=== PATIENT | male | born 1955 | race Caucasian/White ===

== ENCOUNTER 2018-02-10 08:09 | Day surgery (SDC) | payer OTHER, SELFPAY ==
--- NOTE | 2018-02-01 10:10 | RAD_ITS ---
STUDY: X-RAY CHEST REASON FOR EXAM: Male, 62 years old. sob, abnormal stress test, chest pain, pre cath TECHNIQUE: Frontal and lateral views of the chest. COMPARISON: August 08, 2017 FINDINGS: Chronic appearing increased interstitial lung markings. There are multiple median sternotomy wires. The lung saravia are hyperexpanded. There is no demonstrated pleural abnormality. Normal heart size. Normal mediastinum and heidi. Normal visualized pulmonary arteries. There is atherosclerotic calcification of the aortic arch with tortuosity. There are diffuse degenerative changes of the visualized thoracic spine. There is degenerative osteoarthritis of the bilateral shoulders. There is no demonstrated abnormality of the visualized soft tissue structures of the upper abdomen. RAD/Chest PA and Lateral IMPRESSION: There are no acute findings. Electronically Signed: John Zaragoza MD at 16:55 EDT , Service support ,
[2018-02-01 10:34] LABS: Hematocrit 39.8 % (40-54); Hemoglobin 12.6 g/dl (13.0-16.5); Mean Corp Hgb Conc 31.7 g/gl (32-36); Mean Corpuscular Hgb 29.8 pg (27.0-32.0); Mean Corpuscular Volume 94.1 fL (80-94); Mean Platelet Vol. 9.9 fl (6.2-12.0); Platelet Count 220 K/mm3 (150-450); RBC Distribution Width CV 14.8 % (11.6-14.6); RBC Distribution Width SD 47.6 fl (35.1-43.9); Red Blood Count 4.23 M/mm3 (4.6-6.2); White Blood Count 4.9 K/mm3 (4.4-11.0)
[2018-02-01 10:40] LABS: Scan Indicated on CBC? Y/N NO
[2018-02-01 10:55] LABS: Anion Gap 6 (5-15); BUN 12 mg/dL (7-18); BUN/Creat Ratio 17.6 RATIO (10-20); Chloride 104 mmol/L (98-107); Creatinine, Serum 0.68 mg/dL (0.70-1.30); EST Glomerular Filtration Rate 126 mL/min (>60); Est Glom Filt Rate - Afr Amer 152 mL/min (>60); Glucose 86 mg/dL (74-106); Potassium 4.4 mmol/L (3.5-5.1); Sodium Level 141 mmol/L (136-145)
[2018-02-09 08:59] VITALS: BMI 20.3
--- NOTE | 2018-02-10 10:12 | CL.D_ITS ---
Patient Name: ZONIA QUEVEDO Study Date: 02/10/2018 Performing: Cresencio Cook MD Ht: 68.89 inches 175 cm : 1955 Wt: 138.89 lbs 63 kg Age: 62 Gender: male BSA: 1.77 PROCEDURE(S) PERFORMED [id number]/CABG [id number]-AO ROOT ANGIO WITH HEART CATH CLINICAL PROFILE AND INDICATIONS Indications: Stable Known CAD Heart Failure: None Stress/Imaging Stress Test w/SPECT MPI: Yes Result: IndeterminantStress Test with SPECT MPI: Inde terminant CAD Presentations: Stable angina. CONCLUSIONS Severe [place] vessel disease with patent bypass grafts from the saphenous vein graft to the right cor onary artery, left internal mammary artery to the left anterior descending artery, and sequential kim e right internal mammary artery from the diagonal to the circumflex artery. RECOMMENDATIONS Medical therapy DESCRIPTION OF PROCEDURE The patient arrived to the procedure lab. The risks and benefits of the procedure as well as a full d escription of our services here and current unavailability of surgical backup were fully explained to the patient and/or their significant other prior to the catheterization. The Timeout was completed, verifying the correct patient and procedure. The patient's procedural site was prepped and draped in the usual fashion. Local anesthetic was given subcutaneously to right groin region with Lidocaine 2%. Using a modified Seldinger technique, arterial access was obtained via the right femoral artery, a 5 Fr sheath was inserted. Left Coronary Artery selective angiography was performed in multiple views u sing a 5 Fr. JL4 catheter. Right Coronary Artery selective angiography was then performed in multiple views using a 5 Fr. 3DRC (Alejandro) catheter. Left internal mammary artery graft to the LAD selectiv e angiography was performed in multiple views using a 5 Fr. IM catheter. Saphenous Vein graft to the RCA selective angiography was performed in multiple views using a 5 Fr. AR MOD 1 catheter. LV to AO p ullback pressures were then recorded. Ascending (root) aorta selective angiography was then performed in single view. Ascending (root) aorta selective angiography was then performed in single view.The a rterial sheath was pulled and manual compression applied until hemostasis is achieved. CORONARY ANGIOGRAPHY DOMINANCE: Right Dominant LEFT HEART ASSESSMENT Left Ventricular Ejection Fraction: by Radionucleotide 59 % LEFT MAIN: 50 % Stenosis LEFT ANTERIOR DECENDING ARTERY: PROX LAD: 70 % Stenosis DIAGONAL 1: Proximal - 70 % Stenosis CIRCUMFLEX ARTERY: OM 1: Proximal - 80 % Stenosis RIGHT CORONARY ARTERY: MID RCA: is occluded GRAFTS: Saphenous Vein graft to the RPDA is patent MANNING graft to the Mid LAD is patent J CARLOS graft to the diagonal and circumflex coming off as a T graft from the MANNING is patent The free R NAY graft from the left internal mammary artery to the diagonal vessel and the circumflex artery comi ng off as a T graft is patent AORTIC ROOT: Aortogram demonstrated no additional grafts. Normal size is noted. COMPLICATIONS No Complications PROCEDURE MEDICATIONS Versed 1 mg IV Oxygen: 2 L/min via nasal cannula SUMMARY OF HEMODYNAMIC DATA Time AIR REST ECG 08:36:23 AO 126/65 (90) SA 09:06:12 LV 123/-8, 12 09:42:14 LV 123/-6, 16 09:42:37 LVp 126/-4, 14 09:42:44 AOp 121/58 (84) 09:42:49 Signed By Cresencio Cook MD On 02/10/2018 10:11:38 AM Signed By Cresencio Cook MD On 02/10/2018 10:11:17 AM Cresencio Cook MD
== END 2018-02-10 18:00 | disposition home or self-care (01) ==
LOC: CLSP 08:10
PROVIDERS: Family Provider Preventive Medicine Occupational Medicine; PCP Preventive Medicine Occupational Medicine; Visit Provider Internal Medicine Cardiovascular Disease
DX: I25.118 Atherosclerotic heart disease of native coronary artery with other forms of angina pectoris (principal); I25.2 Old myocardial infarction; I10 Essential (primary) hypertension; E78.00 Pure hypercholesterolemia, unspecified; R06.02 Shortness of breath; R07.9 Chest pain, unspecified; R94.39 Abnormal result of other cardiovascular function study; Z95.1 Presence of aortocoronary bypass graft; Z79.82 Long term (current) use of aspirin; Z79.899 Other long term (current) drug therapy
CPT/HCPCS: 36415; 71046; 80048; 85027; 93455; 93567; 99152; 99153; J7040; Q9967; C1769

== ENCOUNTER 2022-01-07 10:45 | Outpatient (CLI) | payer OTHER, SELFPAY ==
[2022-01-07 11:38] LABS: AST(SGOT) 36 U/L (15-37); Alanine Aminotransfer ALT/SGPT 41 U/L (16-61); Alkaline Phosphatase 77 U/L (45-117); Bilirubin, Direct 0.11 mg/dL (0.00-0.30); Cholesterol 133 mg/dL (200); Globulin 3.7 g/dL (2.2-4.2); High Density Lipoprotein 44 mg/dL; Protein, Total 7.7 g/dL (6.4-8.2); Triglycerides 78 mg/dL; Very Low Density Lipoprotein 16 mg/dL (5-40)
== END 2022-01-07 23:59 | disposition home or self-care (01) ==
PROVIDERS: PCP Preventive Medicine Occupational Medicine; Referring Provider Internal Medicine Cardiovascular Disease; Visit Provider Internal Medicine Cardiovascular Disease
DX: E78.00 Pure hypercholesterolemia, unspecified (principal)
CPT/HCPCS: 36415; 80061; 80076

== ENCOUNTER → 2022-10-15 | Outpatient (CLI) | payer OTHER, SELFPAY | END | disposition home or self-care (01) | LOC: PSN 12:42 | PROVIDERS: PCP Preventive Medicine Occupational Medicine; Visit Provider Nurse Practitioner Family | DX: I49.3 Ventricular premature depolarization (principal); I25.119 Atherosclerotic heart disease of native coronary artery with unspecified angina pectoris; R00.2 Palpitations | CPT/HCPCS: 93225; 93226 ==

== ENCOUNTER → 2022-11-01 | Outpatient (CLI) | payer OTHER, SELFPAY ==
--- NOTE | 2022-11-01 06:05 | ECHOD_ITS ---
Reason For Study: PVC, CAD, CABG Procedure This was a 2D Doppler, Color Flow transthoracic echocardiogram. Exam performed in department. Left Ventricle Normal LV size. Left ventricular systolic function is lower limits of normal. The left ventricular ejection fraction is 45 %. Mild segmental systolic dysfunction (see wall motion). Stage 2 diastolic dysfunction. Mid-Inferior: Hypokinetic. Infero-Basal: Hypokinetic. There are regional wall motion abnormalities as specified. The rest of the wall segments are normal. Right Ventricle Normal RV size. Normal systolic function. Atria Normal left atrium. Normal right atrium. Mitral Valve Normal mitral valve. Tricuspid Valve Normal tricuspid valve. Aortic Valve Trisinus/trileaflet aortic valve. Pulmonic Valve Normal pulmonic valve. Great Vessels Normal aortic root. The pulmonary artery is normal size. Normal inferior vena cava. Pericardium/Pleural No pericardial effusion. MMode/2D Measurements & Calculations LVIDd: 4.9 cm IVSd: 1.3 cm LA dimension: 3.6 cm LVIDs: 3.8 cm LVPWd: 1.1 cm RVDd: 3.9 cm FS: 22.6 % LAV(MOD-bp): 56.8 ml LVAd ap4: 33.5 cm2 SV(MOD-sp4): 65.3 ml LAV(MOD-bp) Indexed: 31.4 ml/m2 LVLd ap4: 8.2 cm LAV(MOD-sp2): 60.4 ml EDV(MOD-sp4): 113.5 ml LAV(MOD-sp4): 52.5 ml EDV(sp4-el): 116.5 ml LVAs ap4: 20.2 cm2 LVLs ap4: 7.3 cm ESV(MOD-sp4): 48.2 ml ESV(sp4-el): 47.8 ml EF(MOD-sp4): 57.6 % EF(sp4-el): 58.9 % SV(sp4-el): 68.7 ml LA A4 area: 18.9 cm2 RA A4 area: 17.1 cm2 Time Measurements MV dec time: 0.25 sec Doppler Measurements & Calculations MV E max noah: 83.3 cm/sec Lat Peak E' Noah: 14.6 cm/sec Med Peak E' Noah: 10.5 cm/sec MV A max noah: 62.9 cm/sec E/E' lat: 5.7 E/E' med: 7.9 MV E/A: 1.3 MV V2 max: 72.4 cm/sec Ao V2 max: 127.1 cm/sec MV max P.1 mmHg MV dec slope: 334.9 cm/sec2 Ao max P.5 mmHg MV V2 mean: 35.3 cm/sec Ao V2 mean: 85.7 cm/sec MV mean P.63 mmHg Ao mean P.4 mmHg MV V2 VTI: 33.0 cm Ao V2 VTI: 29.5 cm AV (velocity ratio): 0.74 LV V1 max: 102.3 cm/sec MR max noah: 473.4 cm/sec PA V2 max: 84.1 cm/sec LV V1 max P.2 mmHg MR max P.6 mmHg PA V2 mean: 60.2 cm/sec LV V1 mean P.0 mmHg LV V1 mean: 66.6 cm/sec LV V1 VTI: 21.8 cm ECHO/Echo Complete Interpretation Summary Normal LV size. Left ventricular systolic function is lower limits of normal. The left ventricular ejection fraction is 45 %. Mild segmental systolic dysfunction (see wall motion). Stage 2 diastolic dysfunction. Ordering Physician: Shola Zhang Referring Physician: Kiran Byrne Performed By: Tom Bashir RCS
--- NOTE | 2022-11-01 08:09 | STRESSREP_ITS ---
Stress Test Report Exercise myocardial perfusion stress test. 67-year-old man with a history of coronary artery disease Stress protocol: Resting EKG demonstrates sinus rhythm with a rate of 61 bpm and premature ventricular complexes, resting blood pressure is 152/68 mmHg. The patient exercised according to the regular Fernie protocol for a total duration of 10 minutes completing 1 minute into stage IV of the Fernie protocol attaining a maximum heart rate of 130 bpm which was 83% of maximum predicted heart rate; the maximum workload was 13.4 metabolic equivalents. At rest there were no ST or T wave changes noted to suggest ischemia and at peak exercise upsloping ST changes only were noted which did not meet the criteria for ischemia. No clinical angin a was noted the test was terminated due to the target heart rate being achieved/fatigue. The peak blood pressure was 158/70 mmHg. Rate-pressure product was 17,900. During recovery aberrantly conducted beats were noted. Myocardial perfusion protocol. 11.1 mCi of technetium 99m sestamibi was injected at rest. The patient exercised according to regular Fernie protocol for total duration of 10 minutes and at peak exercise 33.9 mCi of technetium 99m sestamibi was injected stress images were obtained stress and rest images were reconstructed in comparing the short axis vertical long and horizontal long axis. Gated images were not obtained. Perfusion SPECT analysis: Review of the stress images demonstrate normal uptake of tracer noted in all areas of the myocardium except for the inferior wall on the stress images which demonstrated a perfusion defect. The rest of the [place] appear to be normally perfused. The resting images similarly demonstrate normal uptake of tracer noted in all areas of the myocardium there is a persistent defect noted in the inferior wall suggestive of a previous inferior infarct.. No areas of reversibility are noted to suggest ischemia. Conclusion: Normal exercise myocardial perfusion stress test at a high workload Previous inferior infarct is noted
== END | disposition home or self-care (01) ==
LOC: CVS 06:04
PROVIDERS: PCP Preventive Medicine Occupational Medicine; Referring Provider Nurse Practitioner Family; Visit Provider Nurse Practitioner Family
DX: R00.2 Palpitations (principal); I25.119 Atherosclerotic heart disease of native coronary artery with unspecified angina pectoris; I49.3 Ventricular premature depolarization; I25.2 Old myocardial infarction; I10 Essential (primary) hypertension; E78.00 Pure hypercholesterolemia, unspecified; Z95.1 Presence of aortocoronary bypass graft; Z95.5 Presence of coronary angioplasty implant and graft
CPT/HCPCS: 78452; 93017; 93306; A9500; A4216

== ENCOUNTER → 2022-12-03 | Outpatient (CLI) | payer OTHER, SELFPAY | END | disposition home or self-care (01) | LOC: PSN 09:43 | PROVIDERS: PCP Preventive Medicine Occupational Medicine; Visit Provider Nurse Practitioner Family | DX: I49.3 Ventricular premature depolarization (principal) | CPT/HCPCS: 93225; 93226 ==

== ENCOUNTER → 2023-02-25 | Outpatient (CLI) | payer OTHER, SELFPAY | END | disposition home or self-care (01) | LOC: PSN 06:47 | PROVIDERS: PCP Preventive Medicine Occupational Medicine; Referring Provider Nurse Practitioner Family; Visit Provider Nurse Practitioner Family | DX: I49.3 Ventricular premature depolarization (principal) | CPT/HCPCS: 93225; 93226 ==

== ENCOUNTER → 2023-11-11 | Outpatient (CLI) | payer OTHER, SELFPAY ==
--- OUTSIDE RECORDS SUMMARY | 2023-11-11 12:23 | XMS RPT_ITS | CCD ---
Author Name Unknown Address [facility] [place] [address] Organization [facility] Care Team Providers Care Permastone Applicator Name Role Phone RENETTA BYRNE DO Primary Care Physician Renetta Byrne Primary Care Provider Renetta Byrne Primary Care Provider RENETTA BYRNE DO Primary Care Physician Renetta Byrne DO Primary Care Provider LUIS POON Attending Unavailable RENETTA BYRNE Primary Care Unavailable LUIS POON Attending Unavailable RENETTA BYRNE Primary Care Unavailable Teague Carrie S Unavailable Unavailable RENETTA BYRNE DO Primary Care Unavailable FEI WALKER MD Attending Unavailable RENETTA BYRNE DO Attending Unavailable RENETTA BYRNE DO Primary Care Unavailable FEI WALKER MD Attending Unavailable DEON CARREON DO Consulting Unavail able RENETTA BYRNE DO Primary Care Unavailable Allergies Allergy Classification Reported Allergen(s) Allergy Type Date of Onset Reaction(s) Facility (6 sources) Pollen Allergy to substance watery eyes, runny nose [facility] (11 sources) Ragweed; Translations: [RAGWEED] Allergy to substance 2 Other: See Comments [facility] (5 sources) Pollen; Translations: [POLLEN EXTRACTS] Drug Allergy 2 Other: See Comments [facility] Medications Current Medications Medication Drug Class(es) Dates Sig (Normalized) Sig (Original) ascorbic acid 500 mg oral tablet (7 sources) Vitamin C Start: 06-03-2020 Vitamin C 500 mg oral tablet Dose : 500 mg = 1 tab(s), Oral, qDay, 0 Refill(s) Start Date: 06/03/20 Status: Ordered Completed/Discontinued Medications Medication Drug Class(es) Dates Sig (Normalized) Sig (Original) cholecalciferol 0.025 mg oral tablet (4 sources) Vitamin D take 1 tablet by mouth once daily cholecalciferol (VITAMIN D3) 1,000 unit tab tablet Take 1,000 Units by mouth once daily. 0 Active Problems Active Problems Problem Classification Problem Date Documented Da te Episodic/Chronic Abdominal hernia (1 source) Left inguinal hernia 06-21-2023 Episodic Past or Other Problems Problem Classification Problem Date Documented Date Episodic/Chronic Acute posthemorrhagic anemia (4 sources) Acute posthemorrhagic anemia; Translations: [Acute posthemorrhagic anemia] Onset: 12-31-2013 Episodic Results Test Name Value Interpretation Reference Range Facil ity Vital Signs Date Time Vital Sign Value Performing Clinician Faci lity 09-22-2022 20:36-0500 Blood Pressure Location OG DAVIS DO [facility] 09-22-2022 20:36-0500 Blood Pressure Method OG DAVIS DO [facility] 09-22-2022 20:36-0500 Diastolic Blood Pressure Non-Invasive 74 1 OG DAVIS DO [facility] 09-22-2022 20:36-0500 Heart rate 60 /min OG DAVIS DO [facility] 09-22-2022 20:36-0500 Respiratory rate 13 /min OG DAVIS DO [facility] 09-22-2022 20:36-0500 Systolic Blood Pressure Non-Invasive 130 1 OG DAVIS DO [facility] 09-22-2022 18:11-0500 Blood Pressure Location OG DAVIS DO [facility] 09-22-2022 18:11-0500 Blood Pressure Method OG DAVIS DO [facility] 09-22-2022 18:11-0500 Body weight 64.2 kg OG DAVIS DO [facility] 09-22-2022 18:11-0500 Diastolic Blood Pressure Non-Invasive 90 1 OG DAVIS DO [facility] 09-22-2022 18:11-0500 Heart rate 76 /min OG DAVIS DO [facility] 09-22-2022 18:11-0500 Respiratory rate 16 /min OG DAVIS DO [facility] 09-22-2022 18:11-0500 Systolic Blood Pressure Non-Invasive 166 1 OG DAVIS DO [facility] 05-28-2022 15:13-0400 Body height 175.3 cm Luis Poon MD Work Phone: [facility] 05-28-2022 15:13-0400 Body weight 65.32 kg Luis Poon MD Work Phone: [facility] 05-28-2022 15:13-0400 Diastolic blood pressure 84 mm[Hg] Luis Poon MD Work Phone: [facility] 05-28-2022 15:13-0400 Heart rate 54 /min Luis Poon MD Work Phone: [facility] 05-28-2022 15:13-0400 Respiratory rate 14 /min Luis Poon MD Work Phone: [facility] 05-28-2022 15:13-0400 SaO2% (BldA) [Mass fraction] 98 % Luis Poon MD Work Phone: [facility] 05-28-2022 15:13-0400 Systolic blood pressure 148 mm[Hg] Luis Poon MD Work Phone: [facility] Encounters Encounter Date Encounter Type Care Provider Facility Start: 09-22-2023 End: 09-23-2023 ambulatory RENETTA BYRNE DO Facility:B Start: 09-22-2023 End: 09-22-2023 Patient encounter procedure RENETTA BYRNE DO [facility] Start: 07-05-2023 End: 07-05-2023 ambulatory FEI WALKER MD Facility:A Start: 06-21-2023 End: 06-22-2023 ambulatory RENETTA BYRNE DO Facility:A Start: 12-16-2022 End: 12-16-2022 ambulatory LUIS POON Facility:[facility] Start: 12-16-2022 End: 12-16-2022 ambulatory Luis Poon MD Work Phone: [facility] Procedures Date Procedure Procedure Detail Performing Clinician Start: 07-05-2023 Left inguinal hernia (disorder) RENETTA DORANTESKurt WASSERMAN Plan of Treatment Date Care Activity Detail Author Start: 09-26-2022 ADVANCE DIRECTIVE DISCUSSION ADVANCE DIRECTIVE DISCUSSION [facility] Start: 09-26-2022 DEPRESSION ASSESSMENT DEPRESSION ASS ESSMENT [facility] Start: 2022 ADVANCE DIRECTIVE DISCUSSION ADVANCE DIRECTIVE DISCUSSION [facility] Start: 2022 PNEUMOCOCCAL: 65+ (1 - PCV) PNEUMOCOCCAL: 65+ (1 - PCV) [facility] Start: 05-27-2022 Influenza vaccination INFLUENZA (#1) [facility] Start: 04-25-2022 LIPID SCREEN LIPID SCREEN [facility] Start: 09-01-2021 COVID-19 VACCINE (3 - Booster for Moderna series) COVID-19 VACCINE (3 - Booster for Moderna series) [facility] Start: 05-27-2021 COVID-19 VACCINE (3 - Booster for Moderna series) COVID-19 VACCINE (3 - Booster for Moderna series) [facility] Start: 04-25-2018 Hepatitis B surface antibody level LDL CHOLESTEROL [facility] Start: 08-23-2017 DIABETES SCREEN DIABETES SCREEN [facility] Start: 2012 PROSTATE CANCER SCRE ENING DISCUSSION PROSTATE CANCER SCREENING DISCUSSION [facility] Start: 2007 SHINGRIX VACCINE (1 of 2) SHINGRIX V ACCINE (1 of 2) [facility] Start: 2002 COLOGUARD (FIT-DNA) COLOGUARD (FIT-D NA) [facility] Start: 2002 Colonoscopy COLONOSCOPY [facility] Start: 2002 COLORECTAL CANCER SCREENING COLORECTAL CANCER SCREENING [facility] Start: [address] COLONOGRAPHY [facility] Start: 2002 FECAL OCCULT BLOOD FECAL OCCULT BLOO D [facility] Start: 2002 SIGMOIDOSCOPY SIGMOIDOSCOPY [facility] Start: 1976 Urine microalbumin profile DTAP,TDAP ,TD (1 - Tdap) [facility] Start: 1975 ANNUAL PCP TEAM BRIDGE OPERATOR [place] DISEASE VISIT ANNUAL PCP TEAM CHRONIC DISEASE VISIT [facility] Start: 1975 HEPATITIS C SCREENING HEPATITIS C SC REENING [facility] Start: 1975 HIV SCREENING HIV SCREENING [facility] Start: 1969 Adult depression scr eening assessment DEPRESSION SCREENING [facility] Immunizations Immunization Date Immunization Notes Care Provider Fa cility 04-01-2021 COVID-19, mRNA, LNP- S, PF, 100 mcg/ 0.5 mL dose; Translations: [Moderna COVID-19 Vaccine] RENETTA BYRNE DO [facility] Payers Date Payer Category Payer Private Health Insurance [id number] 2022 Unknown [facility] [employer] [place] [employer] [place] [employer] [id number] 2022-Present [phone] [address] [place] [id number] PPO [id number] 2022 Unknown [id number] 1955 Unknown [id number] 1955 Unknown [id number] 1955 Unknown [id number] Social History Date Type Detail Facility Start: 05-30-2020 End: 09-20-2023 Never smoked tobacco (finding) [facility] Sex Assigned At [facility] Start: 04-17-2012 Tobacco use and exposure Smokeless tobacco non-user [facility] Work Phone: Start: 05-28-2022 Alcohol intake Current non-dr child welfare worker of alcohol (finding) [facility] Start: 1955 Sex Assigned At Not on file C [facility] Start: 1955 Sex Assigned At Male C [facility] Medical Equipment Procedure Code Equipment Code Equipment Origin al Text Equipment Identifier Dates [place] Cv 4x.5in Thk1.65mm Ptfe - [id number] Start: 12-31-2013 Robotic Assisted Laparoscopic Inguinal H Unknown 07/05/23 Unknown Unknown FDA Start: 07-05-2023 Functional Status Date Assessment Result Facility 09-22-2022 Functional Status Up ad deidra [facility] 09-22-2022 Functional Status Standard Safet y ID band on, Call device within reach, Bed in low position, Wheels locked, Bedside Cart Locked, Visitor at bedside, Safety level maintained [facility] Mental Status Date Assessment Result Facility 09-22-2022 Mental Status Orientation Oriented x 4 [facility] 09-22-2022 [facility] Notes 12-31-2013 to 12-16-2022 Luis Poon MD - 12/16/2022 1:33 PM EDTTelephone Encounter - Yajaira Polo RN - 06/11/2022 4:45 PM EDTTelephone Encounter - Komal Boggs - 06/11/2022 4:36 PM EDT Note Date & Type Note Facility 12-16-2022 Note HNO ID: [id number] Author: Luis Poon MD Service: ? Author Type: Physician Type: Progress Notes Filed: 12/16/2022 2:02 PM Note Text: Virtual video visit. 25 minutes, established patient I have communicated my name and active licensure. The patient's identity and physical location were verified at the time of this visit. Either the patient or their legal career services representative has been informed of the risks and benefits of -- and alternatives to -- treatment through a remote evaluation and consents to proceed with the evaluation remotely. His symptoms have improved since his last visit. He has improved neck pain, hand numbness, hand dexterity issues, balance and gait difficulty have all improved. His neck pain is intermittent and tolerable. He takes only prn tylenol and naprosyn Cervical plain films, CT and MRI: mild kyphosis with increased atlanto-dental interval. Stenosis at C4-5 and C5-6. Cervical plain films with F/E views (05/17): C1 slightly subluxed forward on C2. No change on F/E views. ANAND is 5 mm. Posterior ANAND is 10 mm. With his symptoms improved and the lack of structural instability on dynamic films, I feel he can continue with conservative treatment for now. Will check cervical plain films with F/E views in 6 months. If symptoms worsen, consider C5 corpectomy +/- C1-2 posterior fixation and fusion. Luis Poon MD [facility] 12-16-2022 History of Presen t illness Narrative Virtual video visit. 25 minutes, established patient I have communicated my name and active licensure. The patient's identity and physical location were verified at the time of this visit. Either the patient or their legal career services representative has been informed of the risks and benefits of -- and alternatives to -- treatment through a remote evaluation and consents to proceed with the evaluation remotely. His symptoms have improved since his last visit. He has improved neck pain, hand numbness, hand dexterity issues, balance and gait difficulty have all improved. His neck pain is intermittent and tolerable. He takes only prn tylenol and naprosyn Cervical plain films, CT and MRI: mild kyphosis with increased atlanto-dental interval. Stenosis at C4-5 and C5-6. Cervical plain films with F/E views (05/17): C1 slightly subluxed forward on C2. No change on F/E views. ANAND is 5 mm. Posterior ANAND is 10 mm. With his symptoms improved and the lack of structural instability on dynamic films, I feel he can continue with conservative treatment for now. Will check cervical plain films with F/E views in 6 months. If symptoms worsen, consider C5 corpectomy +/- C1-2 posterior fixation and fusion. Luis Poon MD documented in this encounter [facility] 09-22-2022 Hospital Discharg e instructions Patient Education 09/22/2022 18:37:25 Understanding Bradycardia Understanding Bradycardia Your heart has an electrical system that sends signals to control the heartbeat. Any abnormal change in the speed or pattern of the heartbeat is called an arrhythmia. An arrhythmia that causes the heart to beat slower than normal is called bradycardia. There are many types of bradycardia. In healthy children and adults, bradycardia is often normal, particularly during sleep. Sometimes bradycardia is caused by failure of the heart s natural timer or failure of the electrical pathways within the heart. Depending on the type you have and how severe it is, you may need treatment. What causes bradycardia? Many things can cause bradycardia, including: Natural aging process Coronary artery disease Heart attack Heart muscle disease Problems with the SA node. This is the heart s natural pacemaker that starts each heartbeat. Problems with the electrical pathways in the heart Problems with the structure of the heart that you are born with Infection Use of certain medicines Electrolyte imbalance Underactive thyroid Sleep apnea Increased pressure in the brain or stroke Well-conditioned athletes often have a naturally slow heart rate. What are the symptoms of bradycardia? Bradycardia can cause a slow or irregular heartbeat. It can also make it harder for the heart to pump blood to the body. This may cause symptoms such as: Tiredness Weakness Loss of ability to exercise Shortness of breath Dizziness or fainting Chest pain Heart failure Some people with bradycardia have no symptoms at all. How is bradycardia treated? Treatment for bradycardia depends on the cause. It also depends on the type you have and how severe your symptoms are. If you need treatment, your options may include: Treatment of the underlying cause. For instance, if a medicine is causing bradycardia, stopping the medicine, under your doctor s guidance, may correct the problem. Or if a condition such as an underactive thyroid is the cause, treating the thyroid may keep bradycardia from coming back. Medicines. Medicines may be used to treat conditions that cause bradycardia. Some medicines can also be used in the short-term to increase the heart rate. These are often not long-term solutions. Temporary pacing. Pacing is used to help regulate your heartbeat.When the heart beats too slowly, the device sends signals to keep the heart beating at the right pace. A temporary pacemaker may be connected to the heart using wires guided through a blood vessel in your neck or leg to the heart. This is also sometimes done using special pads placed on the chest. This may be used in an emergency, as a bridge to permanent pacing, when pacing is only needed short-term, or to further evaluate your condition. Pacemaker. This is a device that is placed permanently under the skin in your chest and connected to your heart. When the heart beats too slowly, the device sends signals to keep the heart beating at the right pace. What are the complications of bradycardia? These can include: Development of other types of arrhythmias Heart failure. This problem occurs when the heart weakens so much that it no longer pumps blood well. Sudden cardiac arrest. This is when the heart suddenly stops beating. When should I call my healthcare provider? Call your healthcare provider right away if you have any of these: Symptoms that don t get better with treatment, or get worse New symptoms [id number] [employer]. [address] [place] [address]. All rights reserved. This information is not intended as a substitute for professional medical care. Always follow your healthcare professional's instructions. Follow Up Care 09/22/2022 18:00:05 With:CUCO ZHENG MD Address: [address] [place] [address] [address] [place] [address]- When:2-4 days [facility] 09-22-2022 Note ORIGINAL EXAMINATION: TWO XRAY VIEWS OF THE CHEST 09/22/2022 7:41 pm COMPARISON: None. HISTORY: ORDERING SYSTEM PROVIDED HISTORY: Reason for Exam: Chest Pain Technologist sheet notes erratic readings with pulse ox and blood pressure cuff at home. FINDINGS: Cardiomediastinal silhouette is within normal limits. There is blunting of the bilateral posterior costophrenic angles. No pneumothorax or focal consolidation. No acute osseous abnormality. Status post sternotomy with intact wires. IMPRESSION: Blunting of the bilateral posterior costophrenic angles, consistent with either scarring or trace posterior pleural effusions. Otherwise, no acute cardiopulmonary process. I have personally reviewed the images of this examination and agree with the resident's findings and interpretation. Interpreted by: Candelario Traylor Preliminary Report By: Marino Burns Electronically signed By Candelario Traylor Dictated Date: 09/22/2022 8:12:40 PM Prelim Date: 09/22/2022 8:19:20 PM Sign Date: 09/22/2022 8:35:23 PM Ordering Provider: OG [facility] 09-22-2022 Note Discharge Instructions Thank you for allowing [facility] to assist you with your healthcare needs. The following is important discharge information regarding your hospital visit. Diagnosis from Today's Visit Heart rate slow What to Do Next Instructions from Your Care Team No qualifying data available. Post Acute Orders No qualifying data available. You Need to Schedule the Following Appointments Follow Up with CUCO ZHENG MD When Within 2-4 days Where: [address] [facility] [address] [place] [address]- Allergies Pollen (watery eyes, runny nose) Ragweed (watery eyes, runny nose) Medications Please ask your primary doctor or pharmacist before taking any other medication not listed, including over the counter drugs, herbal medications, vitamins and or supplements as they may interact with your home medications. What How Much When Why Instructions Last Dose Unchanged ascorbic acid (Vitamin C 500 mg oral tablet) 1 tab(s) by mouth Once a day Unchanged aspirin (aspirin 81 mg oral tablet, chewable) 1 tab(s) by mouth Every day Unchanged cholecalciferol (Vitamin D3) 1,000 unit(s) by mouth Every day Unchanged cyanocobalamin (Vitamin B12 1000 mcg oral tablet) 1 tab(s) by mouth Once a day Unchanged escitalopram (escitalopram 5 mg oral tablet) 1 tab(s) by mouth Once a day Anxiety state Unchanged metoprolol (Metoprolol Succinate ER 25 mg oral TABLET extended release) 1 tab(s) by mouth Once a day Unchanged multivitamin (Multivitamin) 1 tab(s) by mouth Every day Unchanged rosuvastatin (rosuvastatin 40 mg oral tablet) 1 tab(s) by mouth Every day Unchanged ubiquinone (Co Q-10 100 mg oral capsule) 1 cap by mouth Every day Please take this list to your next doctor s visit. Bring all medications you take, including over the counter medications, herbals and other supplements with you to your doctor s visit. Patients and families are reminded to discard old lists and to update any records with all medication providers or retail pharmacies. Education Materials Understanding Bradycardia Your heart has an electrical system that sends signals to control the heartbeat. Any abnormal change in the speed or pattern of the heartbeat is called an arrhythmia. An arrhythmia that causes the heart to beat slower than normal is called bradycardia. There are many types of bradycardia. In healthy children and adults, bradycardia is often normal, particularly during sleep. Sometimes bradycardia is caused by failure of the heart s natural timer or failure of the electrical pathways within the heart. Depending on the type you have and how severe it is, you may need treatment. What causes bradycardia? Many things can cause bradycardia, including: Natural aging process Coronary artery disease Heart attack Heart muscle disease Problems with the SA node. This is the heart s natural pacemaker that starts each heartbeat. Problems with the electrical pathways in the heart Problems with the structure of the heart that you are born with Infection Use of certain medicines Electrolyte imbalance Underactive thyroid Sleep apnea Increased pressure in the brain or stroke Well-conditioned athletes often have a naturally slow heart rate. What are the symptoms of bradycardia? Bradycardia can cause a slow or irregular heartbeat. It can also make it harder for the heart to pump blood to the body. This may cause symptoms such as: Tiredness Weakness Loss of ability to exercise Shortness of breath Dizziness or fainting Chest pain Heart failure Some people with bradycardia have no symptoms at all. How is bradycardia treated? Treatment for bradycardia depends on the cause. It also depends on the type you have and how severe your symptoms are. If you need treatment, your options may include: Treatment of the underlying cause. For instance, if a medicine is causing bradycardia, stopping the medicine, under your doctor s guidance, may correct the problem. Or if a condition such as an underactive thyroid is the cause, treating the thyroid may keep bradycardia from coming back. Medicines. Medicines may be used to treat conditions that cause bradycardia. Some medicines can also be used in the short-term to increase the heart rate. These are often not long-term solutions. Temporary pacing. Pacing is used to help regulate your heartbeat.When the heart beats too slowly, the device sends signals to keep the heart beating at the right pace. A temporary pacemaker may be connected to the heart using wires guided through a blood vessel in your neck or leg to the heart. This is also sometimes done using special pads placed on the chest. This may be used in an emergency, as a bridge to permanent pacing, when pacing is only needed short-term, or to further evaluate your condition. Pacemaker. This is a device that is placed permanently under the skin in your chest and connected to your heart. When the heart beats too slowly, the device sends signals to keep the heart beating at the right pace. What are the complications of bradycardia? These can include: Development of other types of arrhythmias Heart failure. This problem occurs when the heart weakens so much that it no longer pumps blood well. Sudden cardiac arrest. This is when the heart suddenly stops beating. When should I call my healthcare provider? Call your healthcare provider right away if you have any of these: Symptoms that don t get better with treatment, or get worse New symptoms [phone] [employer]. [address] [place] [address]. All rights reserved. This information is not intended as a substitute for professional medical care. Always follow your healthcare professional's instructions. Additional Information VACCINATE! IT SAVES LIVES! Members of the community who have not yet received the COVID-19 vaccine and would like to receive it can visit one of [facility] vaccine clinics. There are many vaccine clinic locations within the [facility]. For locations and available times, please visit [email or web address]. It is important to note that some COVID mobile vaccine clinics are held outdoors and may be canceled in rainy or stormy conditions. To learn more about pediatric vaccinations (ages 5-11), we invite you to visit the [facility] webpage. [email or web address]/p [email or web address]-Grzdu-[email or web address]-Freq [email or web address]-Vgvxredji.html To learn more about the COVID-19 vaccine, we invite you to visit the [facility] website for a list of frequently asked questions. [email or web address] [email or web address].pdf [facility] Patient Portal Access Instructions: Stay connected with your healthcare team and access your personal medical information anytime with the [facility] Patient Portal. If you would like a full copy of your medical records please contact the [facility] Medical Records Department Tuesday through Tuesday between 8a.m. and 4:30p.m. Please follow the directions below to access the portal: 1.Access the email account you provided upon registration to the [facility].2.Look for an invitation email from [facility].3.Open the email and access the invitation link: [facility].Fill in the required saravia to create your account. Sign into [email or web address] with your username and password that you created in the above steps to stay up to date. You can then view a summary of results, a summary of your visits, and the ability to download your summaries to your computer or send the information securely to a physician. Remember that your healthcare information is confidential, so carefully consider who you will allow to register on the [employer] Patient Portal for access to your information. You can also access the [employer] Patient Portal on the [employer] zoya. Simply click on Health Records under Health Data and then click on the [employer] logo. HOW TO SAFELY DISPOSE OF PRESCRIPTION MEDICATIONS Please use one of the following methods to safely dispose of your unused medications. 1.Use a drug disposal kit: the drug disposal pouch allows you to safely discard your old and unused drugs. Ask your nurse to give you one when you are discharged.2.Visit a local take-back location: Many local pharmacies and police departments have programs that collect old and unwanted prescription drugs. Call your local pharmacy or go to http://bit.Infotrieve/9J8My9j to find one close to you.3.Make use of household items: Use cat litter or old coffee grounds to dispose medications if other options are not available. Mix your drugs with these household products, seal them in an airtight container and throw it into the garbage. Call [facility]: [phone] to be sure your drugs can be disposed of in this way. Some medicines may require a different approach.4.Never flush your medications down the toilet. IF YOU HAVE BEEN PRESCRIBED AN OPIOIDS FOR PAIN If you have been prescribed an opioid (such as hydrocodone, oxycodone or morphine), it is critical to understand the possible side effects and risks of opioid pain medications. Even when taken as directed, opioids can have several side effects including: Tolerance, meaning you might need to take more of a medication for the same pain relief. Nausea, vomiting and/or constipation. Sleepiness, dizziness, dry mouth, confusion, depression or itching. Physical dependence, meaning you have withdrawal symptoms when a medication is stopped ? this can develop within a few days. KNOW YOUR RESPONSIBILITIES It is important to know exactly how much and how often to take the opioid pain medications you are prescribed. Never take opioids in higher amounts or more often than prescribed. Do not combine opioids with alcohol or other drugs that cause drowsiness, such as benzodiazepines, also known as benzos, including diazepam and alprazolam, muscle relaxants or sleep aids. Never sell or share prescription opioids. This is illegal. Store opioids in a secure place and out of reach of others (including children, family, friends and visitors). The last page(s) of this document has been signed and retained as a CHART COPY Signatures Patient Education Materials Understanding Bradycardia Medication Leaflets My discharge plan and instructions have been reviewed and explained to me and IEMY JEFFREY L understand my current condition and have read and understand these discharge instructions. I have received a written copy of the plan/instructions. If I have questions, I am aware that I should contact my doctor. Patient/Groundskeeping Maintenance Worker Signature: Date/Time: Relationship to Patient: Witness Name/Signature: Date/Time: [facility] 09-22-2022 Note ORIGINAL EXAMINATION: TWO XRAY VIEWS OF THE CHEST 09/22/2022 7:41 pm COMPARISON: None. HISTORY: ORDERING SYSTEM PROVIDED HISTORY: Reason for Exam: Chest Pain Technologist sheet notes erratic readings with pulse ox and blood pressure cuff at home. FINDINGS: Cardiomediastinal silhouette is within normal limits. There is blunting of the bilateral posterior costophrenic angles. No pneumothorax or focal consolidation. No acute osseous abnormality. Status post sternotomy with intact wires. IMPRESSION: Blunting of the bilateral posterior costophrenic angles, consistent with either scarring or trace posterior pleural effusions. Otherwise, no acute cardiopulmonary process. I have personally reviewed the images of this examination and agree with the resident's findings and interpretation. Interpreted by: Candelario Traylor Preliminary Report By: Marino Burns Electronically signed By Candelario Traylor Dictated Date: 09/22/2022 8:12:40 PM Prelim Date: 09/22/2022 8:19:20 PM Sign Date: 09/22/2022 8:35:23 PM Ordering Provider: OG [facility] 06-11-2022 Miscellaneous Notes Neuro SPINE CARE COORDINATION QUICK NOTE Pending review with Dr. Poon. Received the following record(s) via fax. -xray spine cervical(report) Date 05/06/22 Record(s) scanned into pt's chart. Komal Boggs documented in this encounter [facility] 05-28-2022 Note HNO ID: [id number] Author: Luis Poon MD Service: ? Author Type: Physician Type: Progress Notes Filed: 05/28/2022 4:45 PM Note Text: SPINE SURGERY OUTPATIENT CONSULT SERVICE DATE: 05/28/2022 PCP: Renetta Byrne DO REFERRING PROVIDER: SELF Zonia Gannon is a 66 year old male presenting with spouse. CHIEF COMPLAINT: Neck pain and arm/hand numbness HISTORY OF PRESENT ILLNESS Complains of neck pain, fatigue/weakness in both arms, numbness in his hands, dexterity issue with both hands. He has some difficulty with his balance and gait. Decreased ROM of his neck due to pain. Denies any radiating arm pain. PREVIOUS CONSERVATIVE TREATMENTS: OTC NSAIDS for 3 Months or Greater (Aleve) Physical Therapy: 6 weeks PT in the last 9 months PREVIOUS SPINAL SURGERY: None ACTIVE PROBLEM LIST Cad (Coronary Artery Disease) Anemia Associated With Acute Blood Loss Hyperlipidemia With Target Ldl Less Than 70 Summary Premature Beats PAST MEDICAL HISTORY Diagnosis Date ASHD (arteriosclerotic heart disease) Dislocated thumb late right Hyperlipidemia 12/31/2013 Myocardial infarction (HCC) 01/30/12 inferior wall Right eye trauma 1980 hit with raquet ball S/P coronary artery stent placement 01/30/12 2 stents to right coronary artery S/P left heart catheterization by percutaneous approach 01/30/12 PAST SURGICAL HISTORY Procedure Laterality Date ANKLE ARTHROSCOPY/SURGERY 1980 left ankle dislocation LEFT HEART CATH,PERCUTANEOUS 01/30/12 TONSILLECTOMY HX 1963 FAMILY HISTORY Problem Relation Age of Onset other (Heart valve [Other]) Father Hypertension Mother Hypertension Father other (Leukemia chronic [Other]) Mother Lipids Brother Hypertension Brother Social History Tobacco Use Smoking status: Never Smokeless tobacco: Never Substance Use Topics Alcohol use: No Drug use: No ALLERGIES No Known Allergies MEDICATIONS: rosuvastatin (CRESTOR) 40 mg tablet TAKE 1 TABLET BY MOUTH DAILY AT BEDTIME. nitroglycerin sublingual (NITROQUICK) 0.4 mg SL tablet Dissolve 1 tablet under the tongue as needed. FOR CHEST PAIN. IF NO RELIEF CALL 911 metoprolol succinate ER (TOPROL XL) 25 mg 24 hr tablet Take 1 tablet by mouth once daily. ascorbic acid (VITAMIN C) 500 mg tablet Take 500 mg by mouth once daily. Cholecalciferol, Vitamin D3, (VITAMIN D) 1,000 unit tab Take 1,000 Units by mouth once daily. aspirin 81 mg chewable tablet Take 2 tablets by mouth once daily. therapeutic multivitamin tablet Take 1 tablet by mouth once daily. coenzyme Q10 100 mg cap Take 1 capsule by mouth once daily. Cyanocobalamin 1,000 mcg subl 1 tablet once daily. Patient Entered Questionnaires PROMIS Score Percentiles Percentiles provide an indication of how the patient's score ranks in relation to the general population. Higher percentile rankings indicate better function/quality of life. 50th percentile is the average of the general population and indicates half of respondents had a worse score. Depression Screening: PHQ-9 Self-Harm (Item 9) response options: 0 Not at all 1 Several days 2 More than half the days 3 Nearly every day PHQ-9 Levels: 0-4 No to mild depression 5-9 Mild depression 10-14 Moderate depression 15-19 Moderately severe depression 20-27 Severe depression OBJECTIVE: PHYSICAL EXAM There were no vitals taken for this visit. GENERAL APPEARANCE: Well nourished, well developed, and no apparent distress. NEURO PSYCH: Patient oriented to person, place, and time. Mood pleasant. Benign affect. MUSCULOSKELETAL VISUAL INSPECTION CERVICAL: WNL THORACIC: WNL LUMBAR: WNL MOTOR: 5/5 in all muscle groups. GAIT: Abnormal. Decreased tandem gait IMAGING Cervical plain films, CT and MRI: mild kyphosis with increased atlanto-dental interval. Stenosis at C4-5 and C5-6. ASSESSMENT/PLAN No diagnosis found. Zonia Gannon has a condition that requires further workup. He will mail in his cervical Flexion and extension films SIGNATURE: Luis Poon MD PATIENT NAME: Zonia Gannon DATE: May 28, 2022 TIME: 2:38 PM PAGER: [facility] 05-28-2022 History of Presen t illness Narrative SPINE SURGERY OUTPATIENT CONSULT SERVICE DATE: 05/28/2022 PCP: Renetta Byrne DO REFERRING PROVIDER: SELF Zonia Gannon is a 66 year old male presenting with spouse. CHIEF COMPLAINT: Neck pain and arm/hand numbness HISTORY OF PRESENT ILLNESS Complains of neck pain, fatigue/weakness in both arms, numbness in his hands, dexterity issue with both hands. He has some difficulty with his balance and gait. Decreased ROM of his neck due to pain. Denies any radiating arm pain. PREVIOUS CONSERVATIVE TREATMENTS: OTC NSAIDS for 3 Months or Greater (Aleve) Physical Therapy: 6 weeks PT in the last 9 months PREVIOUS SPINAL SURGERY: None ACTIVE PROBLEM LIST Cad (Coronary Artery Disease) Anemia Associated With Acute Blood Loss Hyperlipidemia With Target Ldl Less Than 70 Summary Premature Beats PAST MEDICAL HISTORY Diagnosis Date ASHD (arteriosclerotic heart disease) Dislocated thumb late right Hyperlipidemia 12/31/2013 Myocardial infarction (HCC) 01/30/12 inferior wall Right eye trauma 1980 hit with raquet ball S/P coronary artery stent placement 01/30/12 2 stents to right coronary artery S/P left heart catheterization by percutaneous approach 01/30/12 PAST SURGICAL HISTORY Procedure Laterality Date ANKLE ARTHROSCOPY/SURGERY 1980 left ankle dislocation LEFT HEART CATH,PERCUTANEOUS 01/30/12 TONSILLECTOMY HX 1963 FAMILY HISTORY Problem Relation Age of Onset other (Heart valve [Other]) Father Hypertension Mother Hypertension Father other (Leukemia chronic [Other]) Mother Lipids Brother Hypertension Brother Social History Tobacco Use Smoking status: Never Smokeless tobacco: Never Substance Use Topics Alcohol use: No Drug use: No ALLERGIES No Known Allergies MEDICATIONS: rosuvastatin (CRESTOR) 40 mg tablet TAKE 1 TABLET BY MOUTH DAILY AT BEDTIME. nitroglycerin sublingual (NITROQUICK) 0.4 mg SL tablet Dissolve 1 tablet under the tongue as needed. FOR CHEST PAIN. IF NO RELIEF CALL 911 metoprolol succinate ER (TOPROL XL) 25 mg 24 hr tablet Take 1 tablet by mouth once daily. ascorbic acid (VITAMIN C) 500 mg tablet Take 500 mg by mouth once daily. Cholecalciferol, Vitamin D3, (VITAMIN D) 1,000 unit tab Take 1,000 Units by mouth once daily. aspirin 81 mg chewable tablet Take 2 tablets by mouth once daily. therapeutic multivitamin tablet Take 1 tablet by mouth once daily. coenzyme Q10 100 mg cap Take 1 capsule by mouth once daily. Cyanocobalamin 1,000 mcg subl 1 tablet once daily. Patient Entered Questionnaires PROMIS Score Percentiles Percentiles provide an indication of how the patient's score ranks in relation to the general population. Higher percentile rankings indicate better function/quality of life. 50th percentile is the average of the general population and indicates half of respondents had a worse score. Depression Screening: PHQ-9 Self-Harm (Item 9) response options: 0 Not at all 1 Several days 2 More than half the days 3 Nearly every day PHQ-9 Levels: 0-4 No to mild depression 5-9 Mild depression 10-14 Moderate depression 15-19 Moderately severe depression 20-27 Severe depression OBJECTIVE: PHYSICAL EXAM There were no vitals taken for this visit. GENERAL APPEARANCE: Well nourished, well developed, and no apparent distress. NEURO PSYCH: Patient oriented to person, place, and time. Mood pleasant. Benign affect. MUSCULOSKELETAL VISUAL INSPECTION CERVICAL: WNL THORACIC: WNL LUMBAR: WNL MOTOR: 5/5 in all muscle groups. GAIT: Abnormal. Decreased tandem gait IMAGING Cervical plain films, CT and MRI: mild kyphosis with increased atlanto-dental interval. Stenosis at C4-5 and C5-6. ASSESSMENT/PLAN No diagnosis found. Zonia Gannon has a condition that requires further workup. He will mail in his cervical Flexion and extension films SIGNATURE: Luis Poon MD PATIENT NAME: Zonia Gannon DATE: May 28, 2022 TIME: 2:38 PM PAGER: documented in this encounter [facility] documented as of this encounter (statuses as of 05/28/2022) [facility] History of Past illness Narrative* Problem Noted Date Resolved Date Hemodynamic instability 12/31/2013 01/03/20 14 Overview: 12/31/2013 Transient hemodynamic instability d/t hypovolemia and vasoplegia. Also component of mild cardiac insuff after CPB. Presently on epinephrine and norepi infusions. multiple pressors post pump. [id number] and CI 2.0 Plan: -correct hypovolemia - fluids and blood products slow wean pressor. Keep adequate perfusion pressure -keep PA for now. -monitor UOP 01/01/2014 wean epi and levo Mechanically assisted ventilation 12/31/2013 01/02/2014 Overview: 12/31/2013 Postop mechanical ventilation for residual anesthesia Plan: -continue ventilation for now. Check ABG. -Wean off ventilation to extubate as tolerated after coagulopathy is corrected. Coagulopathy 12/31/2013 01/02/2014 Overview: 12/31/2013 Post pump fibrinogen 98, plt 69 and INR 1.7 Plan: -We are transfusing 20cryo, 1plt and 1ffp. -recheck coag after transfusion. -monitor for ongoing acute bleeding 01/01/2014 platelet count > 100 ST segment abnormality 12/31/2013 4 Overview: 01/01 ECGs w/ ST changes leads V2-6 ECG 01/[address] elevation septal leads, resolving. Repeat ECG in am Thrombocytopenia 12/31/2013 01/05/2014 Overview: Post-op thrombocytopenia, jerod 69k 12/31. Transfused Plt in CVICU. Con't to recovver at 122K. No signs of bleeding. Con't dosing SQ Heparin and ASA and repeat study in am. Stress hyperglycemia 12/31/2013 01/03/2014 Overview: 12/31/2013 RHI infusion for tight glucose control. Pre-op testing 12/24/2013 01/03/2014 Overview: Images from the original note were not included. [facility] PRE-OP CHECKLIST Surgeon: Alexis Villasenor M.D. Informed Consent Completed: No STS Score: 0.25% CAD: Yes - CAD on Problem List: Yes Is intended procedure a CABG: Yes - is a beta dorian ordered? Yes H & P completed: Yes PA/LAT: Completed CT: Completed MRI: N/A PVR: Completed Cath: Yes - reviewed: Yes Echo:Completed EKG: Completed EF %: nl PI's: Completed Carotid: Completed Mapping: N/A Dental: N/A PFT's: Completed Basename 12/24/13 0715 WBC 6.89 HB 12.9* HCT 38.4* PLT 245 INR -- CREAT 0.82 UA: Negative HCG:N/A ABO/ABO Confirmed: Yes Blood ordered: No SA Swab: Yes - results: Pending Last Dose of Anticoagulation: Aspirin and OTC and Brilinta 12/25/13 Op Note: N/A Pacemaker Check: N/A Consults: none DM: No Cardiac Surgical prep: N/A SIGNATURE: MICHELLE Steven CHECKED BY: DATE of SERVICE: 12/24/2013 TIME of SERVICE: 10:06 AM documented as of this encounter (statuses as of 06/11/2022) [facility] History of Past illness Narrative* Problem Noted Date Resolved Date Hemodynamic instability 12/31/2013 01/03/20 14 Overview: 12/31/2013 Transient hemodynamic instability d/t hypovolemia and vasoplegia. Also component of mild cardiac insuff after CPB. Presently on epinephrine and norepi infusions. multiple pressors post pump. [id number] and CI 2.0 Plan: -correct hypovolemia - fluids and blood products slow wean pressor. Keep adequate perfusion pressure -keep PA for now. -monitor UOP 01/01/2014 wean epi and levo Mechanically assisted ventilation 12/31/2013 01/02/2014 Overview: 12/31/2013 Postop mechanical ventilation for residual anesthesia Plan: -continue ventilation for now. Check ABG. -Wean off ventilation to extubate as tolerated after coagulopathy is corrected. Coagulopathy 12/31/2013 01/02/2014 Overview: 12/31/2013 Post pump fibrinogen 98, plt 69 and INR 1.7 Plan: -We are transfusing 20cryo, 1plt and 1ffp. -recheck coag after transfusion. -monitor for ongoing acute bleeding 01/01/2014 platelet count > 100 ST segment abnormality 12/31/2013 Overview: 01/01 ECGs w/ ST changes leads V2-6 ECG 01/[address] elevation septal leads, resolving. Repeat ECG in am Thrombocytopenia 12/31/2013 01/05/2014 Overview: Post-op thrombocytopenia, jerod 69k 12/31. Transfused Plt in CVICU. Con't to recovver at 122K. No signs of bleeding. Con't dosing SQ Heparin and ASA and repeat study in am. Stress hyperglycemia 12/31/2013 01/03/2014 Overview: 12/31/2013 RHI infusion for tight glucose control. Pre-op testing 12/24/2013 01/03/2014 Overview: Images from the original note were not included. [facility] PRE-OP CHECKLIST Surgeon: Alexis Villasenor M.D. Informed Consent Completed: No STS Score: 0.25% CAD: Yes - CAD on Problem List: Yes Is intended procedure a CABG: Yes - is a beta dorian ordered? Yes H & P completed: Yes PA/LAT: Completed CT: Completed MRI: N/A PVR: Completed Cath: Yes - reviewed: Yes Echo:Completed EKG: Completed EF %: nl PI's: Completed Carotid: Completed Mapping: N/A Dental: N/A PFT's: Completed Basename 12/24/13 0715 WBC 6.89 HB 12.9* HCT 38.4* PLT 245 INR -- CREAT 0.82 UA: Negative HCG:N/A ABO/ABO Confirmed: Yes Blood ordered: No SA Swab: Yes - results: Pending Last Dose of Anticoagulation: Aspirin and OTC and Brilinta 12/25/13 Op Note: N/A Pacemaker Check: N/A Consults: none DM: No Cardiac Surgical prep: N/A SIGNATURE: MICHELLE Steven CHECKED BY: DATE of SERVICE: 12/24/2013 TIME of SERVICE: 10:06 AM documented as of this encounter (statuses as of 06/15/2022) [facility] History of Past illness Narrative* Problem Noted Date Resolved Date Hemodynamic instability 12/31/2013 01/03/20 14 Overview: 12/31/2013 Transient hemodynamic instability d/t hypovolemia and vasoplegia. Also component of mild cardiac insuff after CPB. Presently on epinephrine and norepi infusions. multiple pressors post pump. [id number] and CI 2.0 Plan: -correct hypovolemia - fluids and blood products slow wean pressor. Keep adequate perfusion pressure -keep PA for now. -monitor UOP 01/01/2014 wean epi and levo Mechanically assisted ventilation 12/31/2013 01/02/2014 Overview: 12/31/2013 Postop mechanical ventilation for residual anesthesia Plan: -continue ventilation for now. Check ABG. -Wean off ventilation to extubate as tolerated after coagulopathy is corrected. Coagulopathy 12/31/2013 01/02/2014 Overview: 12/31/2013 Post pump fibrinogen 98, plt 69 and INR 1.7 Plan: -We are transfusing 20cryo, 1plt and 1ffp. -recheck coag after transfusion. -monitor for ongoing acute bleeding 01/01/2014 platelet count > 100 ST segment abnormality 12/31/2013 4 Overview: 01/01 ECGs w/ ST changes leads V2-6 ECG 01/[address] elevation septal leads, resolving. Repeat ECG in am Thrombocytopenia 12/31/2013 01/05/2014 Overview: Post-op thrombocytopenia, jerod 69k 12/31. Transfused Plt in CVICU. Con't to recovver at 122K. No signs of bleeding. Con't dosing SQ Heparin and ASA and repeat study in am. Stress hyperglycemia 12/31/2013 01/03/2014 Overview: 12/31/2013 RHI infusion for tight glucose control. Pre-op testing 12/24/2013 01/03/2014 Overview: Images from the original note were not included. [facility] PRE-OP CHECKLIST Surgeon: Alexis Villasenor M.D. Informed Consent Completed: No STS Score: 0.25% CAD: Yes - CAD on Problem List: Yes Is intended procedure a CABG: Yes - is a beta dorian ordered? Yes H & P completed: Yes PA/LAT: Completed CT: Completed MRI: N/A PVR: Completed Cath: Yes - reviewed: Yes Echo:Completed EKG: Completed EF %: nl PI's: Completed Carotid: Completed Mapping: N/A Dental: N/A PFT's: Completed Basename 12/24/13 0715 WBC 6.89 HB 12.9* HCT 38.4* PLT 245 INR -- CREAT 0.82 UA: Negative HCG:N/A ABO/ABO Confirmed: Yes Blood ordered: No SA Swab: Yes - results: Pending Last Dose of Anticoagulation: Aspirin and OTC and Brilinta 12/25/13 Op Note: N/A Pacemaker Check: N/A Consults: none DM: No Cardiac Surgical prep: N/A SIGNATURE: MICHELLE Steven CHECKED BY: DATE of SERVICE: 12/24/2013 TIME of SERVICE: 10:06 AM documented as of this encounter (statuses as of 12/16/2022) [facility] Appointment Date:08/03/2021 11:15:00 AM Scheduled Provider:RENETTA BYRNE DO Location:[facility] Appointment Type:PC OV Diagnostic Tests Pending * Testosterone, Free and Total 07/24/21 Future Scheduled Tests Radiology* XR Spine Cervical AP/LAT 07/20/21 [facility] Evaluation + Plan note Future Appointments Appointment Date:09/07/2021 09:00:00 AM Scheduled Provider:RENETTA BYRNE DO Location:[facility] Appointment Type:PC OV Future Scheduled Tests Radiology* XR Spine Cervical AP/LAT 07/20/21 [facility] Evaluation + Plan note Future Appointments Appointment Date:03/08/2022 10:00:00 AM Scheduled Provider:RENETTA BYRNE DO Location:[facility] Appointment Type:PC OV Future Scheduled Tests Radiology* XR Spine Cervical AP/LAT 07/20/21 [facility] Evaluation + Plan note Future Appointments Appointment Date:09/06/2022 10:00:00 AM Scheduled Provider:RENETTA BYRNE DO Location:[facility] Appointment Type:PC OV Future Scheduled Tests Radiology* XR Spine Cervical AP/LAT 07/20/21 [facility] Evaluation + Plan note Future Appointments Appointment Date:03/22/2024 11:00:00 AM Scheduled Provider:RENETTA BYRNE DO Location:[facility] Appointment Type:PC OV Follow Up Future Scheduled Tests Laboratory* Albumin/Creatinine Ratio, Random Urine 09/20/23 [facility] Evaluation note* Diagnosis Cervical spondylosis with myelopathy- [facility] Cervical spondylosis with myelopathy- Primary Kyphosis of cervical region, unspecified kyphosis type [facility] Narr[facility] No data available for this section [facility] Hospital Discharge instructions No data available for this section [facility] Progress note No data available for this section [facility] Summary Purpose Family History No Family History Records Found No data available for this section No Family History Records Found Advance Directives No Advanced Directives Records FoundNo Advanced Directives Records Found Additional Source Comments Care Team (unrecognized sect ion and content) Care Team Personnel Name: RENETTA BYRNE DO Position: P4 Physician - Primary Care Member Role: Primary Care Physician Address: Address: [address] [place] [address] [facility] [place], [place] [id number] [place] [address] Care Team Related Persons Name: EMY TEREZA Address: Home [address] [place], [place] [id number] Care Team Personnel Name: RENETTA BYRNE DO Position: P4 Physician - Primary Care Member Role: Primary Care Physician Address: Address: [address] [place] [address] Name: Christelle Schaefer RN Position: ED RN Member Role: ED RN Name: OG DAVIS DO Position: ED Physician Member Role: ED Physician Address: Address: [address] Care Team Related Persons Name: TIERRA GANNONYCE Address: Home [address] [place], [place] [id number] Source Comments (unrecognize d section and content) In the event this informatio n is protected by the Federal Confidentiality of Alcohol and Drug Abuse Patient Records regulations: The Federal rules restrict any use of the information to criminally investigate or prosecute any alcohol or drug abuse patient.[facility] the event this information is protected by the Federal Confidentiality of Alcohol and Drug Abuse Patient Records regulations: The Federal rules restrict any use of the information to criminally investigate or prosecute any alcohol or drug abuse patient.[facility] HospitalIn the event this information is protected by the Federal Confidentiality of Alcohol and Drug Abuse Patient Records regulations: The Federal rules restrict any use of the information to criminally investigate or prosecute any alcohol or drug abuse patient.[facility] the event this information is protected by the Federal Confidentiality of Alcohol and Drug Abuse Patient Records regulations: The Federal rules restrict any use of the information to criminally investigate or prosecute any alcohol or drug abuse patient.[facility] Reason for Visit (unrecogniz ed section and content) Referral ID Status Reason Start Date Expiration Date Visits Re quested Visits Authorized [id number] Closed 05/18/2022 09/25/2022 1 1 Reason Comments Results Reason Comments Neck Pain Specialty Diagnoses / Procedures Referred By Susan t Referred To Contact Spine Health / SPINE SURGERY Diagnoses cervical spine Procedures VIDEO SPEC EST Self Luis Poon MD [address] [place] [address] Referral ID Status Reason Start Date Expiration Date V isits Requested Visits Authorized [id number] Outside PCP 12/16/2022 02/14/2023 1 1 Care Teams (unrecognized sec tion and content) Permastone Applicator Relationship Specialty Start Date End Date Renetta Byrne PCP - General Family Practice 03/03/12 Permastone Applicator Relationship Specialty Start Date End Date Renetta Byrne PCP - General Family Medicine 03/03/12 Permastone Applicator Relationship Specialty Start Date End Date Renetta Byrne DO PCP - General Family Medicine 03/03/12 (unrecognized sect ion and content) No Status Records FoundNo Status Records Found INFORMATION SOURCE (unrecogn ized section and content) DATE CREATED AUTHOR AUTHOR'S ORGANIZ ATION 09/24/2023 [facility] ([place]) FOR RECORDS PERTAINING TO PATIENTS WHO ARE OR HAVE BEEN ENROLLED IN A CHEMICAL DEPENDENCY/SUBSTANCEABUSE PROGRAM, SOME INFORMATION MAY BE OMITTED. This clinical summary was aggregated from multiple sources. Caution should be exercised in using it in the provision of clinical care. This summary normalizes information from multiple sources, and as a consequence, information in this document may materially change the coding, format and clinical context of patient data. In addition, data may be omitted in some cases. CLINICAL DECISIONS SHOULD BE BASED ON THE PRIMARY CLINICAL RECORDS. [facility] [email or web address] [facility]. provides no warranty or guarantee of the accuracy or completeness of information in this document.
== END | disposition home or self-care (01) ==
LOC: PSN 11:55
PROVIDERS: PCP Preventive Medicine Occupational Medicine; Referring Provider Nurse Practitioner Family; Visit Provider Nurse Practitioner Family
DX: I49.3 Ventricular premature depolarization (principal); R00.2 Palpitations
CPT/HCPCS: 93225; 93226

== ENCOUNTER → 2024-03-13 | Outpatient (CLI) | payer OTHER, SELFPAY ==
[2024-03-13 12:14] LABS: ALB/GLOB Ratio 1.1 RATIO (0.9-2.4); AST(SGOT) 32 U/L (15-37); Alanine Aminotransfer ALT/SGPT 28 U/L (16-61); Albumin, Serum 3.8 g/dL (3.2-5.0); Alkaline Phosphatase 68 U/L (45-117); Anion Gap 7 (5-15); BUN 18 mg/dL (7-18); BUN/Creat Ratio 22.6 RATIO (10-20); Calcium,Total 9.1 mg/dL (8.5-10.1); Chloride 104 mmol/L (98-107); EST Glomerular Filtration Rate 103 mL/min (>60); Est Glom Filt Rate - Afr Amer 125 mL/min (>60); Free T4 0.76 ng/dL (0.76-1.46); Globulin 3.6 g/dL (2.2-4.2); Glucose 94 mg/dL (74-106); Magnesium 2.4 mg/dL (1.6-2.6); Potassium 4.1 mmol/L (3.5-5.1); Protein, Total 7.4 g/dL (6.4-8.2); Sodium Level 138 mmol/L (136-145); Thyroid Stim Hormone (TSH) 1.62 uIU/mL (0.358-3.74)
== END | disposition home or self-care (01) ==
LOC: LAB 10:30
PROVIDERS: PCP Preventive Medicine Occupational Medicine; Referring Provider Nurse Practitioner Family; Visit Provider Nurse Practitioner Family
DX: I49.3 Ventricular premature depolarization (principal); Z95.1 Presence of aortocoronary bypass graft; I10 Essential (primary) hypertension; E78.00 Pure hypercholesterolemia, unspecified
CPT/HCPCS: 36415; 80053; 83735; 84439; 84443

== ENCOUNTER → 2024-03-16 | Outpatient (CLI) | payer OTHER, SELFPAY | END | disposition home or self-care (01) | LOC: PSN 11:44 | PROVIDERS: PCP Preventive Medicine Occupational Medicine; Referring Provider Nurse Practitioner Family; Visit Provider Nurse Practitioner Family | DX: I49.3 Ventricular premature depolarization (principal); Z95.1 Presence of aortocoronary bypass graft; I10 Essential (primary) hypertension; E78.00 Pure hypercholesterolemia, unspecified | CPT/HCPCS: 93225; 93226 ==

== ENCOUNTER → 2024-04-16 | Outpatient (CLI) | payer MEDICARE, OTHER, SELFPAY ==
--- NOTE | 2024-04-16 13:12 | ECHOD_ITS ---
Reason For Study: CAD, PVC's Procedure This was a 2D Doppler, Color Flow transthoracic echocardiogram. Exam performed in department. Left Ventricle Normal LV size. The left ventricular ejection fraction is 45 %. Mild segmental systolic dysfunction (see wall motion). Stage 1 diastolic dysfunction. Mid-Inferior: Hypokinetic. Infero-Basal: Severely Hypokinetic. Basal inferoseptal: Hypokinetic. Right Ventricle Normal RV size. Normal systolic function. Atria Normal left atrium. Normal right atrium. Bubble contrast study negative for right to left interatrial shunt. Mitral Valve Normal mitral valve. Tricuspid Valve Normal tricuspid valve. Aortic Valve Trisinus/trileaflet aortic valve. Mild focal aortic valve calcification. Pulmonic Valve Normal pulmonic valve. Great Vessels Normal aortic root. The pulmonary artery is normal size. Normal inferior vena cava. Pericardium/Pleural No pericardial effusion. Medication 22 gauge I.V. with prn adaptor inserted into right arm. Performed a rapid injection of agitated mix of 9 cc saline and 1cc air to assess for atrial septal defect. MMode/2D Measurements & Calculations LVIDd: 4.9 cm IVSd: 1.1 cm LVOT diam: 2.1 cm LVIDs: 3.6 cm LVPWd: 0.92 cm RVDd: 3.4 cm FS: 26.7 % LVOT area: 3.6 cm2 Ao root diam: 2.8 cm LAV(MOD-bp): 49.1 ml LVAd ap4: 34.0 cm2 LAV(MOD-bp) Indexed: 27.5 ml/m2 LVLd ap4: 8.6 cm LAV(MOD-sp2): 69.5 ml EDV(MOD-sp4): 109.3 ml LAV(MOD-sp4): 33.1 ml EDV(sp4-el): 114.2 ml LVAs ap4: 24.0 cm2 LVLs ap4: 7.5 cm ESV(MOD-sp4): 64.7 ml ESV(sp4-el): 64.8 ml EF(MOD-sp4): 40.8 % EF(sp4-el): 43.3 % LVAd ap2: 36.1 cm2 SV(MOD-sp4): 44.6 ml SV(MOD-sp2): 62.2 ml LVLd ap2: 8.9 cm EDV(MOD-sp2): 124.5 ml EDV(sp2-el): 124.0 ml LVAs ap2: 22.6 cm2 LVLs ap2: 7.3 cm ESV(MOD-sp2): 62.3 ml ESV(sp2-el): 59.8 ml EF(MOD-sp2): 50.0 % SV(sp4-el): 49.4 ml LA dimension(2D): 3.8 cm LA A4 area: 14.2 cm2 RA A4 area: 15.3 cm2 TAPSE: 1.9 cm Time Measurements MV dec time: 0.24 sec Doppler Measurements & Calculations MV E max noah: 63.6 cm/sec Lat Peak E' Noah: 13.2 cm/sec Med Peak E' Noah: 8.5 cm/sec MV A max noah: 72.6 cm/sec E/E' lat: 4.8 E/E' med: 7.5 MV E/A: 0.88 MV V2 max: 84.2 cm/sec Ao V2 max: 110.8 cm/sec MV max P.8 mmHg MV dec slope: 270.7 cm/sec2 Ao max P.9 mmHg MV V2 mean: 55.6 cm/sec Ao V2 mean: 74.8 cm/sec MV mean P.4 mmHg Ao mean P.6 mmHg MV V2 VTI: 25.0 cm Ao V2 VTI: 26.2 cm AV (velocity ratio): 0.86 MVA(VTI): 3.2 cm2 ISREAL(I,D): 3.1 cm2 ISREAL(V,D): 3.4 cm2 LV V1 max: 105.1 cm/sec SV(LVOT): 80.0 ml PA V2 max: 70.4 cm/sec LV V1 max P.4 mmHg PA max PG (full): 1.1 mmHg LV V1 mean P.2 mmHg LV V1 mean: 68.6 cm/sec LV V1 VTI: 22.5 cm ECHO/Echo Complete Interpretation Summary Normal LV size. The left ventricular ejection fraction is 45 %. Mild segmental systolic dysfunction (see wall motion). Stage 1 diastolic dysfunction. Bubble contrast study negative for right to left interatrial shunt. Ordering Physician: Shola Zhang Referring Physician: Shola Zhang Performed By: Larissa Us RDCS and Student
== END | disposition home or self-care (01) ==
PROVIDERS: PCP Preventive Medicine Occupational Medicine; Referring Provider Nurse Practitioner Family; Visit Provider Nurse Practitioner Family
DX: I49.3 Ventricular premature depolarization (principal); I10 Essential (primary) hypertension; E78.00 Pure hypercholesterolemia, unspecified; Z95.1 Presence of aortocoronary bypass graft
CPT/HCPCS: 93306; A4216